=== PATIENT | male | born 1975 | race Two or more races ===

== ENCOUNTER 2019-02-06 08:57 | Emergency (ER) | payer SELFPAY ==
[~2019-02-06] VITALS: Ht 182.9 cm; Wt 89.4 kg
[2019-02-06] MEDS ORDERED: cloNIDine HCL 0.1 MG TABLET PO ONE (09:30)
[2019-02-06] MEDS ORDERED: LABETALOL 20 MG/4 ML DISP.SYRIN. IVP ONE (09:30)
--- NOTE | 2019-02-06 09:42 | PHYS DOC ---
Past Medical History Past Medical History: No Pertinent History Past Surgical History: Other Additional Past Surgical Histo: hernia Additional Information: nonsmoker Alcohol Use: Occasionally Drug Use: None Adult General Chief Complaint Chief Complaint: HYPERTENSION HPI HPI Patient is a 43-year-old male with no significant past medical history is presenting to the emergency department with 2 weeks blurry vision and headache. Patient states that he has no history of high blood pressure but he thought whenever he developed blurry vision that it was because his blood pressure was high, he has never taken hypertension medication before. Patient denies focal neurologic deficits, confusion, chest pain, shortness of breath, abdominal pain, constipation, diarrhea, nausea, and vomiting. Patient denies trauma. Patient denies any alleviating or aggravating factors for the headache or blurred vision. Review of Systems Review of Systems Constitutional: Denies fever or chills Eyes: Denies redness or eye pain HENT: Denies nasal congestion or sore throat Respiratory: Denies cough or shortness of breath Cardiovascular: Denies chest pain or palpitations GI: Denies abdominal pain, nausea, or vomiting : Denies dysuria or hematuria Musculoskeletal: Denies back pain or joint pain Integument: Denies rash or skin lesions Neurologic: Reports headache and blurry vision Complete systems were reviewed and found to be within normal limits, except as documented in this note. Current Medications Current Medications Current Medications Medications (Trade) Dose Ordered Sig/Vance Start Time Stop Time Status Last Admin Dose Admin Clonidine HCl (Catapres) 0.1 mg 1X ONCE 02/06/19 09:30 02/06/19 09:35 DC 02/06/19 09:56 0.1 MG Labetalol HCl (Normodyne Iv Push) 10 mg 1X ONCE 02/06/19 09:30 02/06/19 09:35 DC 02/06/19 09:52 10 MG Magnesium Chloride (Mag Delay) 64 mg 1X ONCE 02/06/19 11:00 02/06/19 11:01 UNV Allergies Allergies Allergies Coded Allergies Type Severity Reaction Last Updated Verified No Known Drug Allergies 02/06/19 No Physical Exam Physical Exam Constitutional: Well developed, well nourished, no acute distress, non-toxic appearance HENT: Normocephalic, atraumatic, oropharynx moist Eyes: PERRL, EOMI, conjunctiva normal, no discharge Neck: Normal range of motion, no tenderness, supple Cardiovascular: Heart rate normal, regular rhythm Lungs & Thorax: Bilateral breath sounds clear to auscultation, no wheezing Abdomen: Soft, no tenderness Skin: Warm, dry, no erythema, no rash Back: No tenderness, no CVA tenderness Extremities: No tenderness, ROM intact, no edema Neurologic: Alert and oriented X 3, normal motor function, normal sensory function, no focal deficits noted Psychologic: Affect normal, judgement normal, mood normal Current Patient Data Vital Signs Vital Signs Date Time Temp Pulse Resp B/P (MAP) Pulse Ox O2 Delivery O2 Flow Rate FiO2 02/06/19 09:56 79 186/99 02/06/19 09:02 98.1 16 98 Room Air 98.1 Lab Values Laboratory Tests Test 02/06/19 09:02 02/06/19 09:08 02/06/19 09:50 Urine Collection Type Unknown Urine Color Yellow Urine Clarity Clear Urine pH 6.0 Urine Specific [place] 1.015 Urine Protein >=300 mg/dL (NEG-TRACE) Urine Glucose (UA) Negative mg/dL (NEG) Urine Ketones (Stick) Negative mg/dL (NEG) Urine Blood Large (NEG) Urine Nitrite Negative (NEG) Urine Bilirubin Negative (NEG) Urine Urobilinogen Dipstick 0.2 mg/dL (0.2 mg/dL) Urine Leukocyte Esterase Negative (NEG) Urine RBC >40 /HPF (0-2) Urine WBC 1-4 /HPF (0-4) Urine Squamous Epithelial Cells Few /LPF Urine Bacteria Few /HPF (0-FEW) Urine Hyaline Casts Few /HPF Glucose (Fingerstick) 87 mg/dL (70-99) White Blood Count 3.8 x10^3/uL (4.0-11.0) L Red Blood Count 3.33 x10^6/uL (4.30-5.70) L Hemoglobin 10.1 g/dL (13.0-17.5) L Hematocrit 29.6 % (39.0-53.0) L Mean Corpuscular Volume 89 fL (79-100) Mean Corpuscular Hemoglobin 30 pg (25-35) Mean Corpuscular Hemoglobin Concent 34 g/dL (31-37) Red Cell Distribution Width 15.8 % (11.5-14.5) H Platelet Count 92 x10^3/uL (140-400) L Neutrophils (%) (Auto) 71 % (31-73) Lymphocytes (%) (Auto) 19 % (24-48) L Monocytes (%) (Auto) 7 % (0-9) Eosinophils (%) (Auto) 2 % (0-3) Basophils (%) (Auto) 1 % (0-3) Neutrophils # (Auto) 2.7 x10^3/uL (1.8-7.7) Lymphocytes # (Auto) 0.7 x10^3/uL (1.0-4.8) L Monocytes # (Auto) 0.3 x10^3/uL (0.0-1.1) Eosinophils # (Auto) 0.1 x10^3/uL (0.0-0.7) Basophils # (Auto) 0.0 x10^3/uL (0.0-0.2) Prothrombin Time 14.1 SEC (11.7-14.0) H Prothrombin Time INR 1.1 (0.8-1.1) Activated Partial Thromboplast Time 33 SEC (24-38) Sodium Level 138 mmol/L (136-145) Potassium Level 4.1 mmol/L (3.5-5.1) Chloride Level 106 mmol/L (98-107) Carbon Dioxide Level 26 mmol/L (21-32) Anion Gap 6 (6-14) Blood Urea Nitrogen 13 mg/dL (8-26) Creatinine 0.8 mg/dL (0.7-1.3) Estimated GFR (Cockcroft-Gault) 105.0 BUN/Creatinine Ratio 16 (6-20) Glucose Level 98 mg/dL (70-99) Calcium Level 7.9 mg/dL (8.5-10.1) L Magnesium Level 1.4 mg/dL (1.8-2.4) L Total Bilirubin 0.5 mg/dL (0.2-1.0) Aspartate Amino Transferase (AST) 47 U/L (15-37) H Alanine Aminotransferase (ALT) 26 U/L (16-63) Alkaline Phosphatase 184 U/L (46-116) H Creatine Kinase 91 U/L (39-308) Creatine Kinase MB (Mass) 1.6 ng/mL (0.0-3.6) Creatine Kinase MB Relative Index 1.8 % (0-4) Troponin I Quantitative < 0.017 ng/mL (0.000-0.055) Total Protein 6.6 g/dL (6.4-8.2) Albumin 1.5 g/dL (3.4-5.0) L Albumin/Globulin Ratio 0.3 (1.0-1.7) L Lipase 127 U/L (73-393) Laboratory Tests 02/06/19 09:50 Laboratory Tests 02/06/19 09:50 EKG EKG EKG at 0916 shows sinus rhythm with wandering baseline at 85 bpm, no ST elevation Radiology/Procedures Radiology/Procedures PROCEDURE: CT HEAD WO CONTRAST CT HEAD WO CONTRAST Date: 02/06/2019 9:28 AM Clinical Indication: Headache, blurred vision Comparison: None. Technique: 5 mm axial tomographic images were obtained of the head without contrast. These were viewed on brain and bone windows. One or more of the following dose reduction techniques were utilized: Automated exposure control (AEC), Adjustment of mA and/or kV according to patient size, Use of iterative reconstruction technique such as ASiR, CT scan done according to ALARA and image gently/image wisely Findings: The brain parenchyma is normal in attenuation. No intra- or extra-axial mass or fluid collection. No acute hemorrhage. The ventricles are normal in size, shape, and morphology. The bennett-white matter junction is normal. The subarachnoid cisterns are patent. The visualized paranasal sinuses are normal. The visualized portions of the orbits and globes are normal. The mastoid air cells are clear. The massage operator topogram shows no lytic lesion or fracture. Impression: No acute intracranial process. Electronically signed by: Naveed Livingston MD (02/06/2019 9:51 AM) [facility] PROCEDURE: CT ABDOMEN PELVIS WO CONTRAST Examination: CT ABDOMEN PELVIS WO CONTRAST History: Bloody urine Comparison/Correlation: 11/09/2008 CT abdomen and pelvis without contrast Findings: Axial images of the abdomen and pelvis were obtained without contrast. Sagittal and coronal reformatted images were provided. There is a left lung base is unremarkable. Right lung base was not included on this exam. Very superior aspect of the hepatic dome is not included. Nodular contour of the liver is evident. The liver is somewhat small in size. Splenomegaly is present and length of 19 cm. Moderate amount of ascites about the liver and spleen is noted. Ascites is noted bilaterally in the flank region extending to the pelvis. Pancreas is normal. Adrenal glands are normal. Possibly of calculi in the gallbladder is raised. No radiopaque collecting system calculi identified. No hydronephrosis. Circumferential thickening of the urinary bladder is evident. Bladder is mostly decompressed however. Appendix is normal. Mild distention of the left upper quadrant small bowel loop is present. Circumferential wall thickening of a left lower abdominal digital loop of bowel noted. No surrounding stranding. This may represent contraction or spasm. This is best seen on axial image 149 and coronal image 32. Bony structures unremarkable. Bone island involves the left posterior column. Mild concentric disc bulge at L3-4 and L4-5 noted. Impression: Hepatic cirrhosis and associated splenomegaly. Ascites. Circumferential wall thickening of a left lower abdominal jejunal segment. While this may represent contraction or spasm, interval follow-up or attention on follow-up CT scans is recommended considered to assess stability. No radiopaque collecting system catheter. Renal contours are unremarkable. If mass lesion is a persistent concern, consider CT IVP urogram with IV contrast for further assessment. Possible gallbladder calculi. No biliary dilatation. PQRS Compliance Statement: One or more of the following individualized dose reduction techniques were utilized for this examination: 1. Automated exposure control 2. Adjustment of the mA and/or kV according to patient size 3. Use of iterative reconstruction technique Electronically signed by: Bud Raman MD (02/06/2019 10:41 AM) [facility] Course & Med Decision Making Course & Med Decision Making Pertinent Labs and Imaging studies reviewed. (See chart for details) Patient is a 43-year-old male with no significant past medical history is presenting to the emergency department with 2 weeks of blurry vision and headache. Patient was seen and examined at bedside. Physical exam was significant for no focal neurologic deficits, NIH of 0. Pressure of 215/110. EKG at 0916 shows sinus rhythm with wandering baseline at 85 bpm, no ST elevation. Labs and imaging ordered. Head CT negative. Urinalysis was positive for large blood and RBCs, patient denies flank pain or dysuria but will get a noncontrast abdomen and pelvis CT to further evaluate. Abd/pelvis CT shows hepatic cirrhosis and associated splenomegaly with ascites. Labs significant for calcium and magnesium low, AST and alkaline phosphatase elevated. Replacement magnesium given. Patient will be discharged with close follow-up with PCP to further evaluate hypertension and ascites. Patient stable for discharge with outpatient follow-up with PCP. Discussed findings and plan with patient, who acknowledges understanding and agreement. Dragon Disclaimer Dragon Disclaimer This electronic medical record was generated, in whole or in part, using a voice recognition dictation system. Departure Departure Impression: Primary Impression: Hypertension Additional Impressions: Hematuria Ascites Hypomagnesemia Hypocalcemia Disposition: 01 HOME, SELF-CARE Condition: STABLE Referrals: NO PCP (PCP) Patient Instructions: Ascites, Hematuria, Adult, Hypertension, [id number], Hypocalcemia, Adult, Hypomagnesemia Scripts Clonidine Hcl (CLONIDINE HCL) 0.1 Mg Tablet 0.1 MG PO BID, #14 TAB Prov: FRANCISCO JAVIER NIXON DO 02/06/19 NIHSS Stroke Scale NIH Stroke Scale: NIH Stroke Scale Response (Comments) Value Level of Consciousness: 0 Alert/Responsive 0 LOC Questions: 0 Answers both correctly 0 LOC Commands: 0 Performs both tasks 0 Best Gaze: 0 Normal 0 Visual: 0 No visual loss 0 Facial Palsy: 0 Normal, symmetrical 0 Motor - Left Arm 0 No drift 0 Motor - Right Arm 0 No drift 0 Motor - Left Leg 0 No drift 0 Motor: Right Leg 0 No drift 0 Limb Ataxia: 0 Absent 0 Sensory: 0 No loss 0 Best Language: 0 Normal 0 Dysathria: 0 Normal 0 Extinction and Inattention: 0 Normal 0 Total 0 Problem Qualifiers Primary Impression: Hypertension Hypertension type: unspecified Qualified Codes: I10 - Essential (primary) hypertension Additional Impressions: Hematuria Hematuria type: unspecified type Qualified Codes: R31.9 - Hematuria, unspecified Ascites Ascites type: other type Qualified Codes: R18.8 - Other ascites FRANCISCO JAVIER NIXON DO Feb 06, 2019 09:42
[2019-02-06 09:44] LABS: BILIRUBIN,URINE NEGATIVE (NEG); CLARITY,URINE CLEAR; COLOR,URINE YELLOW; NITRITE,URINE NEGATIVE (NEG); PROTEIN,URINE >=300 mg/dL (NEG-TRACE); UROBILINOGEN,URINE 0.2 mg/dL (0.2 mg/dL)
[2019-02-06 09:50] LABS: SQUAMOUS EPITHELIAL CELL,UR FEW /LPF
[2019-02-06 09:52] LABS: RBC,URINE >40 /HPF (0-2)
[2019-02-06 09:53] LABS: BACTERIA,URINE FEW /HPF (0-FEW)
[2019-02-06 09:54] LABS: HYALINE CASTS, URINE FEW /HPF
--- NOTE | 2019-02-06 09:54 | RAD ---
CT HEAD WO CONTRAST Date: 02/06/2019 9:28 AM Clinical Indication: Headache, blurred vision Comparison: None. Technique: 5 mm axial tomographic images were obtained of the head without contrast. These were viewed on brain and bone windows. One or more of the following dose reduction techniques were utilized: Automated exposure control (AEC), Adjustment of mA and/or kV according to patient size, Use of iterative reconstruction technique such as ASiR, CT scan done according to ALARA and image gently/image wisely Findings: The brain parenchyma is normal in attenuation. No intra- or extra-axial mass or fluid collection. No acute hemorrhage. The ventricles are normal in size, shape, and morphology. The bennett-white matter junction is normal. The subarachnoid cisterns are patent. The visualized paranasal sinuses are normal. The visualized portions of the orbits and globes are normal. The mastoid air cells are clear. The restaurant hourly team member topogram shows no lytic lesion or fracture. Impression: No acute intracranial process. Electronically signed by: Naveed Livingston MD (02/06/2019 9:51 AM) [facility]
[2019-02-06 10:04] LABS: BASO % 1 % (0-3); EOS # 0.1 x10^3/uL (0.0-0.7); EOS % 2 % (0-3); HEMATOCRIT 29.6 % (39.0-53.0); HEMOGLOBIN 10.1 g/dL (13.0-17.5); LYMPH # 0.7 x10^3/uL (1.0-4.8); LYMPH % 19 % (24-48); MEAN CORPUSCULAR HEMOGLOBIN 30 pg (25-35); MEAN CORPUSCULAR HGB CONC 34 g/dL (31-37); MEAN CORPUSCULAR VOLUME 89 fL (79-100); MONO # 0.3 x10^3/uL (0.0-1.1); MONO % 7 % (0-9); NEUT # 2.7 x10^3/uL (1.8-7.7); NEUT % 71 % (31-73); PLATELET COUNT 92 x10^3/uL (140-400); RED BLOOD COUNT 3.33 x10^6/uL (4.30-5.70); RED CELL DISTRIBUTION WIDTH 15.8 % (11.5-14.5); WHITE BLOOD COUNT 3.8 x10^3/uL (4.0-11.0)
[2019-02-06 10:13] LABS: PROTHROMBIN TIME PATIENT 14.1 SEC (11.7-14.0)
--- NOTE | 2019-02-06 10:15 | EKG ---
[facility] [address] [place] [address] Test Date: 2019-02-06 Test Time: 09:16:28 Pat Name: OPAL GALVEZ Department: Room: Gender: M Toter: : 1975 Requested By: FRANCISCO JAVIER NIXON Order Number: [id number] Reading MD: Measurements Intervals [place] Rate: 84 P: MT: QRS: -7 QRSD: 98 T: 148 QT: 358 QTc: 426 Interpretive Statements ATRIAL FLUTTER LEFTWARD AXIS LVH WITH REPOLARIZATION ABNORMALITY ABNORMAL ECG No previous ECG available for comparison
[2019-02-06 10:20] LABS: CALCIUM 7.9 mg/dL (8.5-10.1); CREATININE 0.8 mg/dL (0.7-1.3); POTASSIUM 4.1 mmol/L (3.5-5.1)
[2019-02-06 10:26] LABS: ALBUMIN 1.5 g/dL (3.4-5.0); ALBUMIN/GLOBULIN RATIO 0.3 (1.0-1.7); MAGNESIUM 1.4 mg/dL (1.8-2.4); TOTAL BILIRUBIN 0.5 mg/dL (0.2-1.0); TOTAL PROTEIN 6.6 g/dL (6.4-8.2)
--- NOTE | 2019-02-06 10:44 | RAD ---
Examination: CT ABDOMEN PELVIS WO CONTRAST History: Bloody urine Comparison/Correlation: 11/09/2008 CT abdomen and pelvis without contrast Findings: Axial images of the abdomen and pelvis were obtained without contrast. Sagittal and coronal reformatted images were provided. There is a left lung base is unremarkable. Right lung base was not included on this exam. Very superior aspect of the hepatic dome is not included. Nodular contour of the liver is evident. The liver is somewhat small in size. Splenomegaly is present and length of 19 cm. Moderate amount of ascites about the liver and spleen is noted. Ascites is noted bilaterally in the flank region extending to the pelvis. Pancreas is normal. Adrenal glands are normal. Possibly of calculi in the gallbladder is raised. No radiopaque collecting system calculi identified. No hydronephrosis. Circumferential thickening of the urinary bladder is evident. Bladder is mostly decompressed however. Appendix is normal. Mild distention of the left upper quadrant small bowel loop is present. Circumferential wall thickening of a left lower abdominal digital loop of bowel noted. No surrounding stranding. This may represent contraction or spasm. This is best seen on axial image 149 and coronal image 32. Bony structures unremarkable. Bone island involves the left posterior column. Mild concentric disc bulge at L3-4 and L4-5 noted. Impression: Hepatic cirrhosis and associated splenomegaly. Ascites. Circumferential wall thickening of a left lower abdominal jejunal segment. While this may represent contraction or spasm, interval follow-up or attention on follow-up CT scans is recommended considered to assess stability. No radiopaque collecting system catheter. Renal contours are unremarkable. If mass lesion is a persistent concern, consider CT IVP urogram with IV contrast for further assessment. Possible gallbladder calculi. No biliary dilatation. PQRS Compliance Statement: One or more of the following individualized dose reduction techniques were utilized for this examination: 1. Automated exposure control 2. Adjustment of the mA and/or kV according to patient size 3. Use of iterative reconstruction technique Electronically signed by: Bud Raman MD (02/06/2019 10:41 AM) [facility]
[2019-02-06] MEDS ORDERED: CLON0.1T PO (10:58)
[2019-02-06] MEDS ORDERED: MAGNESIUM CHLORIDE ER 64 MG TABLET.ER PO ONE (11:00)
[2019-02-06 11:14] VITALS: BP 154/85
== END 2019-02-06 11:28 | disposition home or self-care (01) ==
LOC: ER 08:57
DX: I10 Essential (primary) hypertension (principal); R31.9 Hematuria, unspecified; R18.8 Other ascites; E83.42 Hypomagnesemia; E83.51 Hypocalcemia; Z98.890 Other specified postprocedural states
CPT/HCPCS: 36415; 70450; 74176; 80053; 81001; 82553; 82962; 83690; 83735; 84484; 85025; 85610; 85730; 93005; 96374; 99285; J3490